=== PATIENT | male | born 1965 | race Hispanic/Latino ===

== ENCOUNTER 2017-05-26 10:03 | Emergency (ER) | payer BC ==
[2017-05-26 10:25] VITALS: BP 149/94; PULSE 75; RESP 18; TEMP 97.8; O2SAT 99
--- NOTE | 2017-05-26 10:30 | C.PDOC ---
History Of Present Illness 51 year old male with Hx of ETOH use presents to the ED requesting detox for ETOH. Patient states his last consumption of ETOH was today [employer]. He denies any other drug use, no SI/HI or other symptoms at the time. REQUESTING ETOH DETOX. LAST USE [employer]. DENIES OTHER DRUG USE. CURRENTLY ASYMPT. NO SI/SA EXAM NAD PSYCH CALM COOPERATIVE NO ACUTE INTOX/WITHDRAWAL NO SI/SA, ACTIVE PSYCHOSIS Time Seen by Provider: 05/26/17 10:13 Chief Complaint (Nursing): Substance Abuse History Per: Patient History/Exam Limitations: no limitations Onset/Duration Of Symptoms: Hrs Current Symptoms Are (Timing): Still Present Suicide/Self Injury Attempted (Context): None Modifying Factor(s): Alcohol Associated Symptoms: denies: Suicidal Thoughts, Suicidal Plan Involuntary Hold By: None Recent travel outside of the [place]: No Additional History Per: Patient Past Medical History Reviewed: Historical Data, Nursing Documentation, Vital Signs Vital Signs: Last Vital Signs Temp 97.8 F 05/26/17 10:24 Pulse 75 05/26/17 10:24 Resp 18 05/26/17 10:24 BP 149/94 H 05/26/17 10:24 Pulse Ox 99 05/26/17 10:31 - Medical History PMH: No Chronic Diseases Surgical History: No Surg Hx Family History: States: Unknown Family Hx - Social History Hx Alcohol Use: Yes Hx Substance Use: No - Immunization History Hx Tetanus Toxoid Vaccination: Yes Hx Influenza Vaccination: No Hx Pneumococcal Vaccination: No Review Of Systems Constitutional: Negative for: Fever, Chills Cardiovascular: Negative for: Chest Pain Respiratory: Negative for: Shortness of Breath Gastrointestinal: Negative for: Nausea, Vomiting, Abdominal Pain Neurological: Negative for: Weakness, Numbness Psych: Positive for: Psychosis. Negative for: Suicidal ideation, Withdrawal Physical Exam - Physical Exam Appears: Non-toxic, No Acute Distress Skin: Normal Color, Warm, Dry Head: Atraumatic, Normacephalic Oral Mucosa: Moist Neck: Normal ROM, Supple Chest: Symmetrical, No Tenderness Cardiovascular: Rhythm Regular, No Murmur Respiratory: Normal Breath Sounds, No Accessory Muscle Use, No Rales, No Rhonchi , No Wheezing Gastrointestinal/Abdominal: Soft, No Tenderness Extremity: Normal ROM, No Pedal Edema, No Deformity, No Swelling Neurological/Psych: Oriented x3, Normal Speech, Normal Cognition ED Course And Treatment O2 Sat by Pulse Oximetry: 99 (On RA) Pulse Ox Interpretation: Normal - Physician Consult Information Time Consulting Physician Contacted: 10:29 Outcome Of Conversation: D/W CRISIS, NO DETOX BEDS AVAIL Medical Decision Making Medical Decision Making: Patient is in no apparent distress not presenting any intoxication or withdrawal symptoms with no SI/HI , with active psychosis. Crisis will be contacted to have the patient evaluated. Disposition Counseled Patient/Family Regarding: Diagnosis, Need For Followup - Disposition Referrals: [facility],DETOX [Other] Disposition: HOME/ ROUTINE Disposition Time: 10:30 Condition: GOOD Instructions: Abuse of Alcohol (ED) Forms: [employer] (Ukrainian) - Clinical Impression Clinical Impression: Alcohol abuse - Scribe Statement The provider has reviewed the documentation as recorded by the Scribe Abel Miller All medical record entries made by the Scribe were at my direction and personally dictated by me. I have reviewed the chart and agree that the record accurately reflects my personal performance of the history, physical exam, medical decision making, and the department course for this patient. I have also personally directed, reviewed, and agree with the discharge instructions and disposition.
== END 2017-05-26 11:19 | disposition home or self-care (01) ==
LOC: C.ER 10:03
DX: F10.10 Alcohol abuse, uncomplicated (principal); Y90.9 Presence of alcohol in blood, level not specified

== ENCOUNTER 2017-10-25 16:40 | Emergency (ER) | payer BC ==
[2017-10-25 16:50] VITALS: BMI 26.4
[2017-10-25 16:54] VITALS: BP 130/82; PULSE 69; RESP 18; TEMP 97.9; O2SAT 96
[2017-10-25] MEDS ORDERED: Bacitracin 500 Units/gm Oint Foilpak UD TOP STA (17:21)
[2017-10-25] MEDS ORDERED: Tetanus/Diphtheria Toxoids 0.5 ml Syringe IM ONE ×2 (17:21→17:32)
[2017-10-25] MEDS ORDERED: Bacitracin 500 Units/gm Oint Foilpak UD ONE (17:32)
--- NOTE | 2017-10-25 18:22 | CT ---
PROCEDURE: CT HEAD WITHOUT CONTRAST. HISTORY: ETOH, fall, LOC COMPARISON: None available. TECHNIQUE: Axial computed tomography images were obtained through the head/brain without intravenous contrast. Radiation dose: Total exam DLP = 813.82 mGy-cm. This CT exam was performed using one or more of the following dose reduction techniques: Automated exposure control, adjustment of the mA and/or kV according to patient size, and/or use of iterative reconstruction technique. FINDINGS: HEMORRHAGE: No intracranial hemorrhage. BRAIN: No mass effect or edema. Mild atrophy is noted for the patient's age. VENTRICLES: Unremarkable. No hydrocephalus. CALVARIUM: Unremarkable. PARANASAL SINUSES: Unremarkable as visualized. No significant inflammatory changes. MASTOID AIR CELLS: Unremarkable as visualized. No inflammatory changes. OTHER FINDINGS: None. IMPRESSION: No evidence of acute intracranial hemorrhage intracranial collection mass effect or midline shift. Mild atrophy.
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
== END 2017-10-25 18:41 | disposition left against medical advice (07) ==
LOC: C.ER 16:40
DX: S00.81XA Abrasion of other part of head, initial encounter (principal); W01.0XXA Fall on same level from slipping, tripping and stumbling without subsequent striking against object, initial encounter; Y92.9 Unspecified place or not applicable; F10.129 Alcohol abuse with intoxication, unspecified; Z23 Encounter for immunization